=== PATIENT | female | born 1990 | race Caucasian/White ===

== ENCOUNTER 2021-06-18 13:18 | Emergency (ER) | payer OTHER ==
[2021-06-18 14:15] VITALS: BP 109/77; PULSE 99; TEMP 98.8; BMI 23.1
== END 2021-06-18 17:31 | disposition home or self-care (01) ==
LOC: JER 13:18
DX: U07.1 COVID-19 (principal); R05.1 Acute cough; R09.81 Nasal congestion
CPT/HCPCS: 87804; 99283-25; C9803; U0003; U0005